=== PATIENT | male | born 1980 | race Caucasian/White ===

== ENCOUNTER 2020-10-03 13:39 | Emergency (ER) | payer MEDICARE, MEDICAID ==
[~2020-10-03] VITALS: Ht 182.9 cm; Wt 81.0 kg
[2020-10-03] MEDS ORDERED: ONDANSETRON HCL 4MG/2ML INJ IV STA (14:23)
[2020-10-03] MEDS ORDERED: MORPHINE SULFATE 4 MG/ML CPJ (NOT FOR IM USE) IV STA (14:23)
[2020-10-03 15:26] LABS: BASOPHILS % 0.4 % (0.0-2.0); EOSINOPHILS % 0.9 % (0.0-5.0); HEMOGLOBIN. 14.3 g/dL (14.0-18.0); LYMPHOCYTES % 14.7 % (20.0-50.0); MEAN CORPUSCULAR HEMOGLOBIN 30.2 pg (28.0-32.0); MEAN CORPUSCULAR VOLUME 90.6 fL (80.0-94.0); MEAN PLATELET VOLUME 9.1 fl (7.4-10.4); MONOCYTES % 7.2 % (2.0-8.0); NEUTROPHILS % 76.8 % (40.0-76.0); PLATELET 176 x1000/uL (130-400); RED BLOOD CELL COUNT 4.75 mill/uL (4.7-6.1); RED CELL DISTRIBUTION WIDTH 13.8 % (11.6-14.6)
[2020-10-03 15:35] LABS: CHLORIDE 107 mEq/L (98-107)
[2020-10-03] MEDS ORDERED: MORPHINE SULFATE 4 MG/ML CPJ (NOT FOR IM USE) IV ONE (16:15)
[2020-10-03] MEDS ORDERED: IOHEXOL-300 100 ML BOTTLE ONE (17:00)
[2020-10-03 21:25] VITALS: BP 124/68
== END 2020-10-03 21:40 | disposition home or self-care (01) ==
LOC: EDBD 13:39 → ER 14:08
DX: R10.11 Right upper quadrant pain (principal); R00.0 Tachycardia, unspecified
CPT/HCPCS: 36415; 74177; 80053; 83690; 85025; 93005; 96374; 96375; 96376; 99285; J2270; J2405; Q9967